=== PATIENT | male | born 1995 | race Two or more races ===

== ENCOUNTER 2021-01-12 10:50 | Emergency (ER) | payer OTHER ==
[~2021-01-12] VITALS: Ht 170.2 cm; Wt 59.0 kg
[2021-01-12 11:10] VITALS: BP 132/72
--- NOTE | 2021-01-12 11:19 | NUR ---
AT BEDSIDE FOR EVAL.
--- NOTE | 2021-01-12 11:29 | NUR ---
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
--- NOTE | 2021-01-12 12:45 | NUR ---
Patient discharged in custody in stable condition. Written and verbal after care instructions given. Patient verbalizes understanding of instruction.
== END 2021-01-12 12:47 ==
LOC: ER 11:01
DX: S43.492A Other sprain of left shoulder joint, initial encounter (principal); S63.591A Other specified sprain of right wrist, initial encounter; V49.69XA Unspecified car occupant injured in collision with other motor vehicles in traffic accident, initial encounter; Y93.89 Activity, other specified; Y92.413 State road as the place of occurrence of the external cause; Y99.8 Other external cause status
CPT/HCPCS: 71250-TC; 73030-TC; 73110